=== PATIENT | male | born 1975 | race Caucasian/White ===

== ENCOUNTER 2025-02-02 13:55 | Emergency (ER) | payer OTHER ==
[~2025-02-02] VITALS: Ht 170.2 cm; Wt 75.0 kg
[2025-02-02] MEDS: VANCOMYCIN 1.25 GM/WATER(PEG) 250 ML IV ONE (14:00)
[2025-02-02 14:13] VITALS: TEMP 97.9
[2025-02-02 14:41] LABS: PLATELET COUNT (AUTO) 311 K/uL (150-450); RED BLOOD CELL COUNT(AUTO) 5.50 MIL/uL (4.50-5.90); RED CELL DISTRIBUTION WIDTH 14.2 % (11.5-14.5); WHITE BLOOD COUNT (AUTO) 6.3 K/uL (4.5-11.0)
[2025-02-02 14:51] LABS: CALCIUM, TOTAL 9.2 mg/dL (8.8-10.5); CREATININE 1.11 mg/dL (0.60-1.30); GLOMERULAR FILTR. RATE CALC > 60 mL/min (>60); GLUCOSE,RANDOM 121 mg/dL (70-110); SODIUM SERUM 138 mmol/L (136-145); UREA NITROGEN, BLOOD 19 mg/dL (7-18)
[2025-02-02 15:00] LABS: LACTIC ACID 2.0 mmol/L (0.4-2.0)
[2025-02-02] MEDS: CEFEPIME HCL 2 GM in DEXTROSE 5%-WATER 50 ML IV ONE (15:36)
[2025-02-02] MEDS: MORPHINE SULFATE 2 MG/ML SYRINGE IVP ONE (15:40)
[2025-02-02] MEDS: BACITRACIN 0.9 GM PACKET OINTMENT TP ONE (15:42)
[2025-02-02] MEDS: PERTUSS(ACELL),DIPH,TET/PF 0.5 ML SYRINGE [ADULT] IM. ONE (15:47)
[2025-02-02] MEDS: MetroNIDAZOLE 500 MG/NACL 100 ML IV ONE (16:00)
[2025-02-02 18:07] VITALS: BP 138/81; PULSE 84; RESP 20; O2SAT 95
== END 2025-02-02 19:13 | disposition short-term general hospital (02) ==
LOC: EMS 13:59
DX: S62.616A Displaced fracture of proximal phalanx of right little finger, initial encounter for closed fracture (principal); S61.451A Open bite of right hand, initial encounter; L03.113 Cellulitis of right upper limb; W54.0XXA Bitten by dog, initial encounter; Y93.89 Activity, other specified; Y92.89 Other specified places as the place of occurrence of the external cause; Y99.8 Other external cause status
CPT/HCPCS: 99285; 96365; 96367; 96366; 96375; 80048; 83605; 85025; 87040; 36415; 73130; 90715; 90471; 96368; J0692; J3490 ×2; J2270; J7060